=== PATIENT | female | born 1955 | race Caucasian/White ===

== ENCOUNTER 2021-08-13 00:06 | Inpatient (IN) ==
[2021-08-13] MEDS ORDERED: Melatonin 3 MG TABLET PO PRN (02:55)
[2021-08-13] MEDS ORDERED: Naloxone 0.4 MG/ML INJ IVP PRN (02:55)
[2021-08-13] MEDS ORDERED: *HR* Heparin 5,000 UNIT/ML VIAL IVP PRN ×2 (03:04)
[2021-08-13] MEDS ORDERED: *HR* OxyCODONE Immed Rel 5 MG TABLET PO ONE (03:14)
[2021-08-13] MEDS ORDERED: Perflutren Lipid Microsphere 1.3 ML in 0.9 % Sodium Chloride 8.7 ML IVP PRN (03:32)
[2021-08-13] MEDS: Heparin 25,000UNIT/250ML 1/2NS 25,000 UNIT/250 ML IV.SOLN IVC SCH ×2 (03:38→21:28)
[2021-08-13] MEDS ORDERED: *HR* Dextrose 50 % in Water (Syg) 50 ML SYRINGE IVP PRN (04:18)
[2021-08-13] MEDS ORDERED: Dextrose Gel 15 GM/37.5 ML TUBE PO PRN ×2 (04:18)
[2021-08-13] MEDS ORDERED: D5% in Water 1,000 ML IVC PRN (04:18)
[2021-08-13 05:31] LABS: Basophils # 0.1 K/mcL (0.0-0.2); Hematocrit 45.6 % (35.3-44.9); Hemoglobin 14.4 g/dL (11.5-15.4); Immature Granulocytes % 0.8 % (0-4); Lymphocytes # 1.3 K/mcL (0.6-4.6); Lymphocytes % 18.4 %; Mean Corpuscular HGB Conc 31.6 g/dL (31.6-35.5); Mean Corpuscular Hemoglobin 29.1 pg (28.0-33.3); Mean Corpuscular Volume 92.3 fL (83.0-100.0); Mean Platelet Volume 10.3 fL (9.4-12.4); Monocytes # 0.3 K/mcL (0.0-1.3); Monocytes % 4.5 %; Neutrophils # 5.4 K/mcL (1.6-8.9); Platelet Count 202 K/mcL (140-400); Red Blood Count 4.94 M/mcL (3.82-4.97); Red Cell Distribution Width 14.3 % (11.5-14.5); Segmented Neutrophils % 75.3 %; White Blood Count 7.2 K/mcL (4.3-11.1)
[2021-08-13 05:42] LABS: Heparin anti-factor XA UFH 0.92 IU/mL (0.30-0.70); INR 1.2; Prothrombin Time 13.4 Seconds (9.4-12.1)
[2021-08-13 05:44] LABS: Albumin 3.2 g/dL (3.5-5.7); Bilirubin,Total 0.4 mg/dL (0.3-1.0); Calcium 8.2 mg/dL (8.6-10.3); Globulin 3.3 g/dL (2.4-3.5); Magnesium 2.2 mg/dL (1.6-2.6); Phosphorous 3.8 mg/dL (2.7-4.5); Potassium 5.1 mEq/L (3.5-5.1); Total Protein 6.5 g/dL (6.4-8.9)
[2021-08-13 06:01] LABS: Activated Partial Thrombo Time 158.3 Seconds (26.0-36.0)
[2021-08-13] MEDS: Insulin DETEMIR 100 UNIT/ML X5UNITS SUBQ SCH ×3 (08:40→21:45)
[2021-08-13] MEDS: Aspirin 81 MG TAB.CHEW PO SCH (08:40)
[2021-08-13] MEDS ORDERED: Dexamethasone Sodium Phos/PF 10 MG/ML VIAL IVP SCH (09:00)
[2021-08-13] MEDS: Insulin LISPRO 300 UNITS/3 ML VIAL SUBQ SCH ×3 (09:47→17:09)
[2021-08-13] MEDS ORDERED: Azithromycin 500 MG in 0.9 % Sodium Chloride 250 ML IVPB SCH (12:00)
[2021-08-13 12:59] LABS: Heparin anti-factor XA UFH 0.63 IU/mL (0.30-0.70)
[2021-08-13] MEDS ORDERED: Remdesivir 200 MG in 0.9 % Sodium Chloride 100 ML IVPB ONE (14:00)
[2021-08-13] MEDS: rOPINIRole 1 MG TABLET PO SCH ×2 (17:07→23:55)
[2021-08-13] MEDS: Acetaminophen 325 MG TABLET PO PRN (17:07)
[2021-08-13] MEDS: cefTRIAXone 1,000 MG in 0.9 % Sodium Chloride Mini Bag 100 ML IVPB SCH (17:45)
[2021-08-13] MEDS: Doxycycline 100 MG in 0.9 % Sodium Chloride Mini Bag 100 ML IVPB SCH (17:46)
[2021-08-13] MEDS: Dexmedetomidine HCl 400 MCG/100 ML MLS IVC SCH (17:59)
[2021-08-13] MEDS ORDERED: Insulin LISPRO 300 UNITS/3 ML VIAL SUBQ SCH ×2 (21:00)
[2021-08-13 21:18] LABS: BUN/Creatinine Ratio 36 (6-26); Blood Urea Nitrogen 35 mg/dL (8-23); Calcium 8.1 mg/dL (8.6-10.3); Carbon Dioxide 26 mEq/L (23-29); Chloride 102 mEq/L (98-107); Glucose 286 mg/dL (70-105); Magnesium 2.1 mg/dL (1.6-2.6); Osmolality,Calculated 298 (280-300); Potassium 4.6 mEq/L (3.5-5.1); Sodium 135 mEq/L (136-145); eGFR For African Americans > 60 (> 60); eGFR For Non-African Americans 58 (> 60)
[2021-08-14] MEDS: Acetaminophen 325 MG TABLET PO PRN (04:01)
[2021-08-14 04:49] LABS: Hematocrit 43.9 % (35.3-44.9); Hemoglobin 14.3 g/dL (11.5-15.4); Mean Corpuscular HGB Conc 32.6 g/dL (31.6-35.5); Mean Corpuscular Hemoglobin 29.9 pg (28.0-33.3); Mean Corpuscular Volume 91.6 fL (83.0-100.0); Mean Platelet Volume 10.4 fL (9.4-12.4); Platelet Count 245 K/mcL (140-400); Red Blood Count 4.79 M/mcL (3.82-4.97); Red Cell Distribution Width 13.9 % (11.5-14.5)
[2021-08-14] MEDS: Dexmedetomidine HCl 400 MCG/100 ML MLS IVC SCH (04:49)
[2021-08-14] MEDS: cefTRIAXone 1,000 MG in 0.9 % Sodium Chloride Mini Bag 100 ML IVPB SCH ×2 (04:50→20:19)
[2021-08-14 04:51] LABS: White Blood Count 14.5 K/mcL (4.3-11.1)
[2021-08-14 05:10] LABS: Alanine Aminotransferase 25 Units/L (7-52); Albumin 3.1 g/dL (3.5-5.7); Alkaline Phosphatase 63 Units/L (34-104); Aspartate Amino Transferase 60 Units/L (13-39); BUN/Creatinine Ratio 41 (6-26); Bilirubin,Direct 0.1 mg/dL (0.0-0.2); Bilirubin,Indirect 0.3 mg/dL (0.0-1.0); Bilirubin,Total 0.4 mg/dL (0.3-1.0); Blood Urea Nitrogen 36 mg/dL (8-23); Carbon Dioxide 26 mEq/L (23-29); Chloride 101 mEq/L (98-107); Globulin 3.2 g/dL (2.4-3.5); Glucose 279 mg/dL (70-105); Osmolality,Calculated 296 (280-300); Potassium 4.2 mEq/L (3.5-5.1); Sodium 134 mEq/L (136-145); Total Protein 6.3 g/dL (6.4-8.9); eGFR For African Americans > 60 (> 60); eGFR For Non-African Americans > 60 (> 60)
[2021-08-14] MEDS: rOPINIRole 1 MG TABLET PO SCH (05:23)
[2021-08-14] MEDS: Doxycycline 100 MG in 0.9 % Sodium Chloride Mini Bag 100 ML IVPB SCH ×2 (05:27→20:16)
[2021-08-14] MEDS: Insulin LISPRO 300 UNITS/3 ML VIAL SUBQ SCH ×5 (08:24→23:01)
[2021-08-14] MEDS: Dexamethasone Sodium Phos/PF 10 MG/ML VIAL IVP SCH (08:24)
[2021-08-14] MEDS: Insulin DETEMIR 100 UNIT/ML X5UNITS SUBQ SCH ×2 (08:25→20:21)
[2021-08-14] MEDS: Aspirin 81 MG TAB.CHEW PO SCH (09:13)
[2021-08-14] MEDS ORDERED: Norepinephrine 4 MG/254 ML IV.SOLN IVC ONE (09:28)
[2021-08-14] MEDS ORDERED: Artificial Tears SOLN 15 ML BOTTLE BOTH EYES PRN (09:30)
[2021-08-14] MEDS ORDERED: FentaNYL (PF) 1,000 MCG/100 ML IV.SOLN ONE (09:32)
[2021-08-14] MEDS: Cisatracurium 200 MG in 0.9 % Sodium Chloride 180 ML IVC SCH ×2 (09:35→19:24)
[2021-08-14] MEDS ORDERED: Albumin Human 5% 12.5 GM/250 ML IV.SOLN ONE (09:36)
[2021-08-14] MEDS: FentaNYL (PF) 1,000 MCG/100 ML IV.SOLN IVC SCH (10:00)
[2021-08-14] MEDS: Budesonide/Formoterol 160/4.5 1 PUFF INH IH SCH ×2 (11:22→19:36)
[2021-08-14] MEDS: Norepinephrine 4 MG/254 ML IV.SOLN IVC SCH ×2 (11:30→20:49)
[2021-08-14] MEDS ORDERED: *HR* Etomidate 20 MG/10 ML AMPUL IVP ONE (11:30)
[2021-08-14] MEDS ORDERED: *HR* Midazolam HCl 5 MG/5 ML VIAL IVP ONE (11:30)
[2021-08-14] MEDS ORDERED: *HR* Midazolam HCl 2 MG/2 ML VIAL ONE (11:30)
[2021-08-14] MEDS ORDERED: *HR* Succinylcholine 200 MG/10 ML VIAL IVP ONE (11:30)
[2021-08-14 11:41] LABS: ABG Base Excess 0 mEq/L (-2 to 3); ABG HCO3 26 mEq/L (21-27); ABG Oxygen Saturation 78 % (95-98); ABG PCO2 50 mmHg (35-45); ABG PH 7.33 pH Units (7.32-7.45); ABG PO2 46 mmHg (85-104); ABG TCO2 28 mEq/L (20-26); Blood Gas Modality ASSIST CONTROL; Blood Gas VT 450 cc
[2021-08-14] MEDS: Heparin 25,000UNIT/250ML 1/2NS 25,000 UNIT/250 ML IV.SOLN IVC SCH ×2 (12:23→17:02)
[2021-08-14 13:12] LABS: ABG Base Excess 1 mEq/L (-2 to 3); ABG HCO3 27 mEq/L (21-27); ABG Oxygen Saturation 94 % (95-98); ABG PCO2 49 mmHg (35-45); ABG PH 7.35 pH Units (7.32-7.45); ABG PO2 76 mmHg (85-104); ABG TCO2 28 mEq/L (20-26); Blood Gas Modality ASSIST CONTROL; Blood Gas VT 450 cc
[2021-08-14] MEDS: Artificial Tears SOLN 15 ML BOTTLE BOTH EYES SCH ×4 (14:21→23:00)
[2021-08-14] MEDS: Remdesivir 100 MG in 0.9 % Sodium Chloride 100 ML IVPB SCH (15:00)
[2021-08-14] MEDS: Chlorhexidine Rinse 15 ML MOUTHWASH MM SCH (20:20)
[2021-08-15 00:36] LABS: ABG Base Excess 2 mEq/L (-2 to 3); ABG HCO3 29 mEq/L (21-27); ABG Oxygen Saturation 99 % (95-98); ABG PCO2 52 mmHg (35-45); ABG PH 7.35 pH Units (7.32-7.45); ABG PO2 147 mmHg (85-104); ABG TCO2 30 mEq/L (20-26); Blood Gas VT 380 cc
[2021-08-15] MEDS: FentaNYL (PF) 1,000 MCG/100 ML IV.SOLN IVC SCH ×3 (02:13→21:09)
[2021-08-15] MEDS: Dexmedetomidine HCl 400 MCG/100 ML MLS IVC SCH ×2 (02:14→19:03)
[2021-08-15] MEDS: Norepinephrine 4 MG/254 ML IV.SOLN IVC SCH ×4 (02:14→22:10)
[2021-08-15 04:22] LABS: ABG Base Excess 1 mEq/L (-2 to 3); ABG HCO3 29 mEq/L (21-27); ABG Oxygen Saturation 99 % (95-98); ABG PCO2 60 mmHg (35-45); ABG PO2 162 mmHg (85-104); ABG TCO2 31 mEq/L (20-26); Blood Gas VT 380 cc
[2021-08-15 04:23] LABS: Hematocrit 46.2 % (35.3-44.9); Hemoglobin 14.4 g/dL (11.5-15.4); Mean Corpuscular HGB Conc 31.2 g/dL (31.6-35.5); Mean Corpuscular Hemoglobin 28.9 pg (28.0-33.3); Mean Corpuscular Volume 92.6 fL (83.0-100.0); Mean Platelet Volume 10.9 fL (9.4-12.4); Platelet Count 233 K/mcL (140-400); Red Blood Count 4.99 M/mcL (3.82-4.97); Red Cell Distribution Width 14.2 % (11.5-14.5)
[2021-08-15 04:36] LABS: Alanine Aminotransferase 27 Units/L (7-52); Albumin 3.1 g/dL (3.5-5.7); Albumin/Globulin Ratio 0.9 (1.1-2.2); Alkaline Phosphatase 66 Units/L (34-104); Aspartate Amino Transferase 47 Units/L (13-39); BUN/Creatinine Ratio 48 (6-26); Bilirubin,Direct 0.1 mg/dL (0.0-0.2); Bilirubin,Indirect 0.3 mg/dL (0.0-1.0); Bilirubin,Total 0.4 mg/dL (0.3-1.0); Blood Urea Nitrogen 38 mg/dL (8-23); C-Reactive Protein 104 mg/L (Less than 10); Calcium 8.5 mg/dL (8.6-10.3); Carbon Dioxide 28 mEq/L (23-29); Chloride 107 mEq/L (98-107); Globulin 3.3 g/dL (2.4-3.5); Glucose 117 mg/dL (70-105); Osmolality,Calculated 302 (280-300); Potassium 4.2 mEq/L (3.5-5.1); Sodium 141 mEq/L (136-145); Total Protein 6.4 g/dL (6.4-8.9); eGFR For African Americans > 60 (> 60); eGFR For Non-African Americans > 60 (> 60)
[2021-08-15] MEDS: Insulin LISPRO 300 UNITS/3 ML VIAL SUBQ SCH ×6 (04:51→23:02)
[2021-08-15] MEDS: Artificial Tears SOLN 15 ML BOTTLE BOTH EYES SCH ×6 (04:51→22:10)
[2021-08-15 05:06] LABS: Heparin anti-factor XA UFH 0.52 IU/mL (0.30-0.70)
[2021-08-15] MEDS: Cisatracurium 200 MG in 0.9 % Sodium Chloride 180 ML IVC SCH ×3 (05:34→23:02)
[2021-08-15] MEDS: cefTRIAXone 1,000 MG in 0.9 % Sodium Chloride Mini Bag 100 ML IVPB SCH ×2 (06:15→17:15)
[2021-08-15] MEDS: Doxycycline 100 MG in 0.9 % Sodium Chloride Mini Bag 100 ML IVPB SCH ×2 (06:15→17:15)
[2021-08-15] MEDS: Budesonide/Formoterol 160/4.5 1 PUFF INH IH SCH ×2 (07:27→19:19)
[2021-08-15] MEDS: Pantoprazole 40 MG VIAL IVP SCH (08:25)
[2021-08-15] MEDS: Aspirin 81 MG TAB.CHEW PO SCH (08:26)
[2021-08-15] MEDS: Chlorhexidine Rinse 15 ML MOUTHWASH MM SCH ×2 (08:26→19:28)
[2021-08-15] MEDS: Dexamethasone Sodium Phos/PF 10 MG/ML VIAL IVP SCH (08:26)
[2021-08-15] MEDS: Insulin DETEMIR 100 UNIT/ML X5UNITS SUBQ SCH ×2 (08:42→20:00)
[2021-08-15] MEDS ORDERED: 0.9 % Sodium Chloride 1,000 ML ONE (10:54)
[2021-08-15] MEDS: Heparin 25,000UNIT/250ML 1/2NS 25,000 UNIT/250 ML IV.SOLN IVC SCH (11:15)
[2021-08-15 11:46] LABS: ABG Base Excess 0 mEq/L (-2 to 3); ABG HCO3 28 mEq/L (21-27); ABG Oxygen Saturation 89 % (95-98); ABG PCO2 57 mmHg (35-45); ABG PH 7.29 pH Units (7.32-7.45); ABG PO2 65 mmHg (85-104); ABG TCO2 29 mEq/L (20-26); Blood Gas Modality ASSIST CONTROL; Blood Gas VT 380 cc
[2021-08-15] MEDS: Remdesivir 100 MG in 0.9 % Sodium Chloride 100 ML IVPB SCH (14:39)
[2021-08-15 14:43] LABS: Amorphous Sediment,Urine Few per hpf (None-Few); Bacteria,Urine Few per hpf (None-Few); Bilirubin,Urine Negative (Negative); Blood,Urine Negative (Negative); Clarity,Urine Clear (Clear); Color,Urine Yellow (Yellow); Glucose,Urine (UA) Normal (Normal); Granular Casts,Urine Many per lpf (None Seen); Hyaline Casts,Urine Moderate per lpf (None Seen); Ketones,Urine Trace mg/dL (Negative); Leukocyte Esterase,Urine Negative (Negative); Mucus,Urine Few per lpf (None-Few); Nitrite,Urine Negative (Negative); Protein,Urine 70 mg/dL (Neg-Trace); RBC,Urine 0-3 per hpf (0-3); Specific Gravity,Urine > 1.030 (1.010-1.025); Squamous Epithelial Cell,Urine Few per hpf (None-Few); Transitional Epi Cells,Urine Few per hpf (None-Few); Urobilinogen,Urine Normal (Normal)
[2021-08-16] MEDS: Heparin 25,000UNIT/250ML 1/2NS 25,000 UNIT/250 ML IV.SOLN IVC SCH ×2 (01:28→18:53)
[2021-08-16] MEDS: Artificial Tears SOLN 15 ML BOTTLE BOTH EYES SCH ×7 (02:08→23:05)
[2021-08-16] MEDS: Insulin LISPRO 300 UNITS/3 ML VIAL SUBQ SCH ×6 (03:06→23:05)
[2021-08-16 03:19] LABS: Hematocrit 45.6 % (35.3-44.9); Hemoglobin 14.3 g/dL (11.5-15.4); Mean Corpuscular HGB Conc 31.4 g/dL (31.6-35.5); Mean Corpuscular Hemoglobin 29.2 pg (28.0-33.3); Mean Corpuscular Volume 93.1 fL (83.0-100.0); Mean Platelet Volume 10.6 fL (9.4-12.4); Platelet Count 264 K/mcL (140-400); Red Cell Distribution Width 14.4 % (11.5-14.5); White Blood Count 14.7 K/mcL (4.3-11.1)
[2021-08-16 03:37] LABS: Alanine Aminotransferase 31 Units/L (7-52); Albumin/Globulin Ratio 0.9 (1.1-2.2); Alkaline Phosphatase 65 Units/L (34-104); Aspartate Amino Transferase 51 Units/L (13-39); BUN/Creatinine Ratio 46 (6-26); Bilirubin,Direct 0.1 mg/dL (0.0-0.2); Bilirubin,Indirect 0.3 mg/dL (0.0-1.0); Bilirubin,Total 0.4 mg/dL (0.3-1.0); Blood Urea Nitrogen 43 mg/dL (8-23); Calcium 8.8 mg/dL (8.6-10.3); Carbon Dioxide 27 mEq/L (23-29); Chloride 107 mEq/L (98-107); Globulin 3.2 g/dL (2.4-3.5); Glucose 147 mg/dL (70-105); Osmolality,Calculated 306 (280-300); Potassium 4.8 mEq/L (3.5-5.1); Sodium 141 mEq/L (136-145); Total Protein 6.2 g/dL (6.4-8.9); eGFR For African Americans > 60 (> 60); eGFR For Non-African Americans 60 (> 60)
[2021-08-16] MEDS: FentaNYL (PF) 1,000 MCG/100 ML IV.SOLN IVC SCH ×3 (04:17→19:23)
[2021-08-16 04:57] LABS: ABG Base Excess 0 mEq/L (-2 to 3); ABG HCO3 28 mEq/L (21-27); ABG Oxygen Saturation 98 % (95-98); ABG PCO2 59 mmHg (35-45); ABG PH 7.29 pH Units (7.32-7.45); ABG PO2 120 mmHg (85-104); ABG TCO2 30 mEq/L (20-26); Blood Gas VT 380 cc
[2021-08-16] MEDS: cefTRIAXone 1,000 MG in 0.9 % Sodium Chloride Mini Bag 100 ML IVPB SCH ×2 (05:02→17:41)
[2021-08-16] MEDS: Doxycycline 100 MG in 0.9 % Sodium Chloride Mini Bag 100 ML IVPB SCH ×2 (05:02→17:42)
[2021-08-16] MEDS: Budesonide/Formoterol 160/4.5 1 PUFF INH IH SCH ×2 (07:49→19:27)
[2021-08-16] MEDS: Pantoprazole 40 MG VIAL IVP SCH (08:27)
[2021-08-16] MEDS: Aspirin 81 MG TAB.CHEW PO SCH (08:28)
[2021-08-16] MEDS: Insulin DETEMIR 100 UNIT/ML X5UNITS SUBQ SCH ×2 (08:28→20:35)
[2021-08-16] MEDS: Dexamethasone Sodium Phos/PF 10 MG/ML VIAL IVP SCH (08:28)
[2021-08-16] MEDS: Chlorhexidine Rinse 15 ML MOUTHWASH MM SCH ×2 (08:28→20:35)
[2021-08-16] MEDS: Norepinephrine 4 MG/254 ML IV.SOLN IVC SCH ×3 (08:29→22:41)
[2021-08-16] MEDS: Dexmedetomidine HCl 400 MCG/100 ML MLS IVC SCH ×2 (08:29→22:41)
[2021-08-16] MEDS: Cisatracurium 200 MG in 0.9 % Sodium Chloride 180 ML IVC SCH ×2 (09:26→18:54)
[2021-08-16] MEDS: Furosemide 20 MG/2 ML VIAL IVP SCH (09:29)
[2021-08-16] MEDS: Remdesivir 100 MG in 0.9 % Sodium Chloride 100 ML IVPB SCH (14:11)
[2021-08-17] MEDS: FentaNYL (PF) 1,000 MCG/100 ML IV.SOLN IVC SCH ×5 (00:04→23:54)
[2021-08-17] MEDS: Artificial Tears SOLN 15 ML BOTTLE BOTH EYES SCH ×7 (03:10→23:07)
[2021-08-17] MEDS: Insulin LISPRO 300 UNITS/3 ML VIAL SUBQ SCH ×7 (03:10→23:07)
[2021-08-17] MEDS: Cisatracurium 200 MG in 0.9 % Sodium Chloride 180 ML IVC SCH ×3 (03:11→18:56)
[2021-08-17 04:28] LABS: ABG Base Excess 2 mEq/L (-2 to 3); ABG HCO3 29 mEq/L (21-27); ABG Oxygen Saturation 93 % (95-98); ABG PCO2 50 mmHg (35-45); ABG PH 7.37 pH Units (7.32-7.45); ABG PO2 71 mmHg (85-104); ABG TCO2 30 mEq/L (20-26); Blood Gas VT 380 cc
[2021-08-17 04:32] LABS: Hematocrit 44.7 % (35.3-44.9); Hemoglobin 14.2 g/dL (11.5-15.4); Mean Corpuscular HGB Conc 31.8 g/dL (31.6-35.5); Mean Corpuscular Hemoglobin 29.5 pg (28.0-33.3); Mean Corpuscular Volume 92.7 fL (83.0-100.0); Mean Platelet Volume 10.9 fL (9.4-12.4); Platelet Count 276 K/mcL (140-400); Red Blood Count 4.82 M/mcL (3.82-4.97); Red Cell Distribution Width 14.4 % (11.5-14.5); White Blood Count 13.1 K/mcL (4.3-11.1)
[2021-08-17] MEDS: Doxycycline 100 MG in 0.9 % Sodium Chloride Mini Bag 100 ML IVPB SCH ×2 (05:05→17:07)
[2021-08-17] MEDS: cefTRIAXone 1,000 MG in 0.9 % Sodium Chloride Mini Bag 100 ML IVPB SCH ×2 (05:05→17:08)
[2021-08-17 05:14] LABS: Alanine Aminotransferase 30 Units/L (7-52); Albumin 2.9 g/dL (3.5-5.7); Albumin/Globulin Ratio 0.9 (1.1-2.2); Alkaline Phosphatase 58 Units/L (34-104); Aspartate Amino Transferase 47 Units/L (13-39); BUN/Creatinine Ratio 52 (6-26); Bilirubin,Direct 0.1 mg/dL (0.0-0.2); Bilirubin,Indirect 0.3 mg/dL (0.0-1.0); Bilirubin,Total 0.4 mg/dL (0.3-1.0); Blood Urea Nitrogen 45 mg/dL (8-23); C-Reactive Protein 38 mg/L (Less than 10); Calcium 8.6 mg/dL (8.6-10.3); Carbon Dioxide 26 mEq/L (23-29); Chloride 107 mEq/L (98-107); Globulin 3.1 g/dL (2.4-3.5); Glucose 164 mg/dL (70-105); Osmolality,Calculated 307 (280-300); Potassium 4.6 mEq/L (3.5-5.1); Sodium 141 mEq/L (136-145); eGFR For African Americans > 60 (> 60); eGFR For Non-African Americans > 60 (> 60)
[2021-08-17 05:45] LABS: Lymphocytes # 0.8 K/mcL (0.6-4.6); Monocytes # 1.1 K/mcL (0.0-1.3); Neutrophils # 11.1 K/mcL (1.6-8.9)
[2021-08-17 05:46] LABS: Platelet Estimate Normal (Normal)
[2021-08-17] MEDS: Budesonide/Formoterol 160/4.5 1 PUFF INH IH SCH ×2 (07:26→19:25)
[2021-08-17] MEDS: Chlorhexidine Rinse 15 ML MOUTHWASH MM SCH ×2 (08:28→20:18)
[2021-08-17] MEDS: Pantoprazole 40 MG VIAL IVP SCH (08:28)
[2021-08-17] MEDS: Aspirin 81 MG TAB.CHEW PO SCH (08:28)
[2021-08-17] MEDS: Furosemide 20 MG/2 ML VIAL IVP SCH ×3 (08:28→20:20)
[2021-08-17] MEDS: Insulin DETEMIR 100 UNIT/ML X5UNITS SUBQ SCH ×2 (08:28→20:20)
[2021-08-17] MEDS: Dexamethasone Sodium Phos/PF 10 MG/ML VIAL IVP SCH (08:28)
[2021-08-17] MEDS: Norepinephrine 4 MG/254 ML IV.SOLN IVC SCH ×2 (08:29→17:09)
[2021-08-17] MEDS: Dexmedetomidine HCl 400 MCG/100 ML MLS IVC SCH (09:26)
[2021-08-17] MEDS ORDERED: Albumin 25% 25gram/100mL 25 GM/100 ML IV.SOLN IVPB ONE (11:48)
[2021-08-17] MEDS: Heparin 25,000UNIT/250ML 1/2NS 25,000 UNIT/250 ML IV.SOLN IVC SCH ×2 (12:07→23:08)
[2021-08-17] MEDS: Remdesivir 100 MG in 0.9 % Sodium Chloride 100 ML IVPB SCH (13:51)
[2021-08-18] MEDS: Cisatracurium 200 MG in 0.9 % Sodium Chloride 180 ML IVC SCH (02:54)
[2021-08-18] MEDS: Artificial Tears SOLN 15 ML BOTTLE BOTH EYES SCH ×6 (04:27→23:11)
[2021-08-18] MEDS: Insulin LISPRO 300 UNITS/3 ML VIAL SUBQ SCH ×6 (04:28→23:12)
[2021-08-18] MEDS: Norepinephrine 4 MG/254 ML IV.SOLN IVC SCH ×3 (04:29→21:24)
[2021-08-18 04:38] LABS: Hematocrit 44.9 % (35.3-44.9); Hemoglobin 14.2 g/dL (11.5-15.4); Mean Corpuscular HGB Conc 31.6 g/dL (31.6-35.5); Mean Corpuscular Hemoglobin 29.8 pg (28.0-33.3); Mean Corpuscular Volume 94.3 fL (83.0-100.0); Mean Platelet Volume 10.2 fL (9.4-12.4); Platelet Count 359 K/mcL (140-400); Red Blood Count 4.76 M/mcL (3.82-4.97); Red Cell Distribution Width 14.9 % (11.5-14.5); White Blood Count 17.6 K/mcL (4.3-11.1)
[2021-08-18 04:55] LABS: ABG Base Excess 3 mEq/L (-2 to 3); ABG HCO3 31 mEq/L (21-27); ABG Oxygen Saturation 89 % (95-98); ABG PCO2 65 mmHg (35-45); ABG PH 7.29 pH Units (7.32-7.45); ABG PO2 64 mmHg (85-104); ABG TCO2 33 mEq/L (20-26); Blood Gas VT 380 cc
[2021-08-18 04:56] LABS: BUN/Creatinine Ratio 56 (6-26); Blood Urea Nitrogen 52 mg/dL (8-23); Calcium 8.9 mg/dL (8.6-10.3); Carbon Dioxide 29 mEq/L (23-29); Chloride 108 mEq/L (98-107); Glucose 175 mg/dL (70-105); Osmolality,Calculated 316 (280-300); Potassium 5.1 mEq/L (3.5-5.1); Sodium 144 mEq/L (136-145); eGFR For African Americans > 60 (> 60); eGFR For Non-African Americans > 60 (> 60)
[2021-08-18 05:23] LABS: Albumin 3.3 g/dL (3.5-5.7); Albumin/Globulin Ratio 1.1 (1.1-2.2); Bilirubin,Direct 0.2 mg/dL (0.0-0.2); Bilirubin,Indirect 0.3 mg/dL (0.0-1.0); Bilirubin,Total 0.5 mg/dL (0.3-1.0); Total Protein 6.3 g/dL (6.4-8.9)
[2021-08-18] MEDS: FentaNYL (PF) 1,000 MCG/100 ML IV.SOLN IVC SCH (05:33)
[2021-08-18] MEDS: cefTRIAXone 1,000 MG in 0.9 % Sodium Chloride Mini Bag 100 ML IVPB SCH ×2 (05:34→17:32)
[2021-08-18] MEDS: Doxycycline 100 MG in 0.9 % Sodium Chloride Mini Bag 100 ML IVPB SCH ×2 (05:34→17:32)
[2021-08-18] MEDS: Budesonide/Formoterol 160/4.5 1 PUFF INH IH SCH ×2 (07:38→20:13)
[2021-08-18] MEDS: Furosemide 20 MG/2 ML VIAL IVP SCH ×2 (08:38→21:15)
[2021-08-18] MEDS: Chlorhexidine Rinse 15 ML MOUTHWASH MM SCH ×2 (08:40→21:15)
[2021-08-18] MEDS: Pantoprazole 40 MG VIAL IVP SCH (08:40)
[2021-08-18] MEDS: Aspirin 81 MG TAB.CHEW PO SCH (08:40)
[2021-08-18] MEDS: Insulin DETEMIR 100 UNIT/ML X5UNITS SUBQ SCH ×2 (08:41→21:15)
[2021-08-18] MEDS: Dexmedetomidine HCl 400 MCG/100 ML MLS IVC SCH ×2 (09:18→11:00)
[2021-08-18] MEDS: *HR* Enoxaparin 60 MG/0.6 ML SYRINGE SQ SCH (21:15)
[2021-08-19] MEDS: Insulin LISPRO 300 UNITS/3 ML VIAL SUBQ SCH ×4 (04:37→22:46)
[2021-08-19] MEDS: Artificial Tears SOLN 15 ML BOTTLE BOTH EYES SCH ×2 (04:37→09:10)
[2021-08-19 04:44] LABS: Hematocrit 41.2 % (35.3-44.9); Hemoglobin 13.2 g/dL (11.5-15.4); Mean Corpuscular Hemoglobin 29.9 pg (28.0-33.3); Mean Corpuscular Volume 93.4 fL (83.0-100.0); Mean Platelet Volume 10.8 fL (9.4-12.4); Platelet Count 258 K/mcL (140-400); Red Blood Count 4.41 M/mcL (3.82-4.97); Red Cell Distribution Width 14.9 % (11.5-14.5); White Blood Count 12.4 K/mcL (4.3-11.1)
[2021-08-19] MEDS: Doxycycline 100 MG in 0.9 % Sodium Chloride Mini Bag 100 ML IVPB SCH (05:05)
[2021-08-19] MEDS: cefTRIAXone 1,000 MG in 0.9 % Sodium Chloride Mini Bag 100 ML IVPB SCH (05:05)
[2021-08-19] MEDS: Norepinephrine 4 MG/254 ML IV.SOLN IVC SCH (05:05)
[2021-08-19 06:13] LABS: BUN/Creatinine Ratio 72 (6-26); Blood Urea Nitrogen 55 mg/dL (8-23); Calcium 9.2 mg/dL (8.6-10.3); Carbon Dioxide 34 mEq/L (23-29); Chloride 108 mEq/L (98-107); Glucose 105 mg/dL (70-105); Osmolality,Calculated 323 (280-300); Potassium 4.5 mEq/L (3.5-5.1); Sodium 149 mEq/L (136-145); eGFR For African Americans > 60 (> 60); eGFR For Non-African Americans > 60 (> 60)
[2021-08-19] MEDS: Budesonide/Formoterol 160/4.5 1 PUFF INH IH SCH ×2 (07:26→20:14)
[2021-08-19] MEDS: Furosemide 20 MG/2 ML VIAL IVP SCH ×2 (08:28→21:11)
[2021-08-19] MEDS: Pantoprazole 40 MG VIAL IVP SCH (08:28)
[2021-08-19] MEDS: *HR* Enoxaparin 60 MG/0.6 ML SYRINGE SQ SCH ×2 (08:31→21:10)
[2021-08-19] MEDS: Chlorhexidine Rinse 15 ML MOUTHWASH MM SCH ×2 (08:31→21:12)
[2021-08-19] MEDS: Aspirin 81 MG TAB.CHEW PO SCH (08:35)
[2021-08-19] MEDS: Insulin DETEMIR 100 UNIT/ML X5UNITS SUBQ SCH ×2 (09:08→21:11)
[2021-08-19] MEDS ORDERED: Insulin LISPRO 300 UNITS/3 ML VIAL SUBQ SCH ×2 (11:30→21:00)
[2021-08-19] MEDS ORDERED: *HR* Dextrose 50 % in Water (Syg) 50 ML SYRINGE IVP PRN (12:45)
[2021-08-19] MEDS ORDERED: Naloxone 0.4 MG/ML INJ IVP PRN (12:45)
[2021-08-19] MEDS ORDERED: D5% in Water 1,000 ML IVC PRN (12:45)
[2021-08-19] MEDS ORDERED: Dextrose Gel 15 GM/37.5 ML TUBE PO PRN ×2 (12:45)
[2021-08-20 05:44] LABS: BUN/Creatinine Ratio 70 (6-26); Blood Urea Nitrogen 56 mg/dL (8-23); C-Reactive Protein 58 mg/L (Less than 10); Calcium 9.5 mg/dL (8.6-10.3); Carbon Dioxide 36 mEq/L (23-29); Chloride 102 mEq/L (98-107); Glucose 160 mg/dL (70-105); Osmolality,Calculated 323 (280-300); Potassium 4.4 mEq/L (3.5-5.1); Sodium 147 mEq/L (136-145); eGFR For African Americans > 60 (> 60); eGFR For Non-African Americans > 60 (> 60)
[2021-08-20] MEDS: Insulin LISPRO 300 UNITS/3 ML VIAL SUBQ SCH ×4 (07:45→21:45)
[2021-08-20] MEDS: Budesonide/Formoterol 160/4.5 1 PUFF INH IH SCH (08:00)
[2021-08-20] MEDS: Insulin DETEMIR 100 UNIT/ML X5UNITS SUBQ SCH ×2 (08:24→21:52)
[2021-08-20] MEDS: *HR* Enoxaparin 60 MG/0.6 ML SYRINGE SQ SCH (08:24)
[2021-08-20] MEDS: Chlorhexidine Rinse 15 ML MOUTHWASH MM SCH (08:24)
[2021-08-20] MEDS: Acetaminophen 325 MG TABLET PO PRN (08:24)
[2021-08-20] MEDS: Aspirin 81 MG TAB.CHEW PO SCH (08:25)
[2021-08-20] MEDS: Furosemide 20 MG/2 ML VIAL IVP SCH ×2 (08:25→21:51)
[2021-08-20] MEDS ORDERED: Dexamethasone Sodium Phos/PF 10 MG/ML VIAL IVP SCH (09:00)
[2021-08-20] MEDS ORDERED: Pantoprazole 40 MG VIAL IVP SCH (09:00)
[2021-08-20] MEDS: Ergocalciferol (VIT D2) 50,000 UNIT (1.25MG) CAP PO SCH (11:39)
[2021-08-20] MEDS ORDERED: *HR* Enoxaparin 60 MG/0.6 ML SYRINGE SQ SCH (21:00)
[2021-08-20] MEDS: *HR* Enoxaparin 40 MG/0.4 ML SYRINGE SQ SCH (21:51)
[2021-08-20] MEDS: rOPINIRole 1 MG TABLET PO SCH (21:52)
[2021-08-21 01:03] LABS: Basophils % 0.2 %; Eosinophils # 0.2 K/mcL (0.0-0.6); Eosinophils % 1.1 %; Hematocrit 43.1 % (35.3-44.9); Hemoglobin 14.1 g/dL (11.5-15.4); Immature Granulocytes % 1.5 % (0-4); Lymphocytes % 14.4 %; Mean Corpuscular HGB Conc 32.7 g/dL (31.6-35.5); Mean Corpuscular Hemoglobin 29.9 pg (28.0-33.3); Mean Corpuscular Volume 91.5 fL (83.0-100.0); Mean Platelet Volume 10.3 fL (9.4-12.4); Monocytes # 0.6 K/mcL (0.0-1.3); Monocytes % 4.3 %; Neutrophils # 10.6 K/mcL (1.6-8.9); Platelet Count 218 K/mcL (140-400); Red Blood Count 4.71 M/mcL (3.82-4.97); Red Cell Distribution Width 14.2 % (11.5-14.5); Segmented Neutrophils % 78.5 %; White Blood Count 13.6 K/mcL (4.3-11.1)
[2021-08-21 01:20] LABS: BUN/Creatinine Ratio 63 (6-26); Blood Urea Nitrogen 38 mg/dL (8-23); Calcium 8.9 mg/dL (8.6-10.3); Carbon Dioxide 35 mEq/L (23-29); Chloride 97 mEq/L (98-107); Glucose 152 mg/dL (70-105); Magnesium 1.8 mg/dL (1.6-2.6); Osmolality,Calculated 302 (280-300); Phosphorous 3.9 mg/dL (2.7-4.5); Potassium 4.1 mEq/L (3.5-5.1); Sodium 140 mEq/L (136-145); eGFR For African Americans > 60 (> 60); eGFR For Non-African Americans > 60 (> 60)
[2021-08-21] MEDS: Insulin LISPRO 300 UNITS/3 ML VIAL SUBQ SCH ×4 (07:41→21:13)
[2021-08-21] MEDS: *HR* Enoxaparin 40 MG/0.4 ML SYRINGE SQ SCH ×2 (09:53→21:11)
[2021-08-21] MEDS: Aspirin 81 MG TAB.CHEW PO SCH (09:54)
[2021-08-21] MEDS: Cyanocobalamin (B-12) 1,000 MCG TABLET PO SCH (09:54)
[2021-08-21] MEDS: Loratadine 10 MG TABLET PO SCH (09:54)
[2021-08-21] MEDS: rOPINIRole 1 MG TABLET PO SCH ×2 (09:55→21:12)
[2021-08-21] MEDS: Valsartan 80 MG TABLET PO SCH (09:55)
[2021-08-21] MEDS: Furosemide 20 MG/2 ML VIAL IVP SCH ×2 (09:56→21:12)
[2021-08-21] MEDS: Fluticasone Propionate Nasal 50 MCG/SPRAY BOTTLE NS SCH (09:58)
[2021-08-21] MEDS: Insulin DETEMIR 100 UNIT/ML X5UNITS SUBQ SCH ×2 (10:19→21:12)
[2021-08-21] MEDS: Nystatin POWDER 30 GM BOTTLE TP SCH (23:04)
[2021-08-22 07:04] LABS: BUN/Creatinine Ratio 55 (6-26); Blood Urea Nitrogen 30 mg/dL (8-23); Calcium 9.4 mg/dL (8.6-10.3); Carbon Dioxide 36 mEq/L (23-29); Chloride 96 mEq/L (98-107); Glucose 82 mg/dL (70-105); Osmolality,Calculated 291 (280-300); Potassium 3.9 mEq/L (3.5-5.1); Sodium 138 mEq/L (136-145); eGFR For African Americans > 60 (> 60); eGFR For Non-African Americans > 60 (> 60)
[2021-08-22 07:14] LABS: Basophils % 0.2 %; Eosinophils # 0.4 K/mcL (0.0-0.6); Hematocrit 45.2 % (35.3-44.9); Hemoglobin 14.7 g/dL (11.5-15.4); Immature Granulocytes % 0.9 % (0-4); Lymphocytes # 3.2 K/mcL (0.6-4.6); Lymphocytes % 17.6 %; Mean Corpuscular HGB Conc 32.5 g/dL (31.6-35.5); Mean Corpuscular Hemoglobin 29.3 pg (28.0-33.3); Mean Platelet Volume 10.7 fL (9.4-12.4); Monocytes # 0.9 K/mcL (0.0-1.3); Monocytes % 5.1 %; Neutrophils # 13.6 K/mcL (1.6-8.9); Platelet Count 217 K/mcL (140-400); Red Blood Count 5.02 M/mcL (3.82-4.97); Segmented Neutrophils % 74.2 %; White Blood Count 18.3 K/mcL (4.3-11.1)
[2021-08-22] MEDS: Insulin LISPRO 300 UNITS/3 ML VIAL SUBQ SCH ×4 (07:32→19:46)
[2021-08-22] MEDS: Valsartan 80 MG TABLET PO SCH (10:02)
[2021-08-22] MEDS: Fluticasone Propionate Nasal 50 MCG/SPRAY BOTTLE NS SCH (10:02)
[2021-08-22] MEDS: Loratadine 10 MG TABLET PO SCH (10:02)
[2021-08-22] MEDS: Aspirin 81 MG TAB.CHEW PO SCH (10:02)
[2021-08-22] MEDS: Cyanocobalamin (B-12) 1,000 MCG TABLET PO SCH (10:03)
[2021-08-22] MEDS: Nystatin POWDER 30 GM BOTTLE TP SCH ×2 (10:03→20:59)
[2021-08-22] MEDS: rOPINIRole 1 MG TABLET PO SCH ×2 (10:03→20:01)
[2021-08-22] MEDS: *HR* Enoxaparin 40 MG/0.4 ML SYRINGE SQ SCH ×2 (10:03→20:00)
[2021-08-22] MEDS: Furosemide 20 MG/2 ML VIAL IVP SCH (10:03)
[2021-08-22] MEDS: Insulin DETEMIR 100 UNIT/ML X5UNITS SUBQ SCH ×2 (10:04→20:03)
[2021-08-23] MEDS ORDERED: Saline Nasal Spray 44 ML BOTTLE NS PRN (05:46)
[2021-08-23] MEDS: Fluticasone Propionate Nasal 50 MCG/SPRAY BOTTLE NS SCH (09:45)
[2021-08-23] MEDS: Valsartan 80 MG TABLET PO SCH (09:46)
[2021-08-23] MEDS: Loratadine 10 MG TABLET PO SCH (09:46)
[2021-08-23] MEDS: rOPINIRole 1 MG TABLET PO SCH ×2 (09:46→19:15)
[2021-08-23] MEDS: *HR* Enoxaparin 40 MG/0.4 ML SYRINGE SQ SCH ×2 (09:47→20:46)
[2021-08-23] MEDS: Furosemide 40 MG TABLET PO SCH (09:47)
[2021-08-23] MEDS: Insulin LISPRO 300 UNITS/3 ML VIAL SUBQ SCH ×4 (09:47→19:31)
[2021-08-23] MEDS: Aspirin 81 MG TAB.CHEW PO SCH (09:47)
[2021-08-23] MEDS: Cyanocobalamin (B-12) 1,000 MCG TABLET PO SCH (09:47)
[2021-08-23] MEDS: Nystatin POWDER 30 GM BOTTLE TP SCH ×2 (09:48→19:42)
[2021-08-23] MEDS: Insulin DETEMIR 100 UNIT/ML X5UNITS SUBQ SCH (20:46)
[2021-08-24] MEDS ORDERED: Isovue-370 500 ML BOTTLE IVP ONE (08:14)
[2021-08-24] MEDS: *HR* Enoxaparin 40 MG/0.4 ML SYRINGE SQ SCH ×2 (08:42→19:58)
[2021-08-24] MEDS: Insulin LISPRO 300 UNITS/3 ML VIAL SUBQ SCH ×4 (08:42→19:57)
[2021-08-24] MEDS: Loratadine 10 MG TABLET PO SCH (08:43)
[2021-08-24] MEDS: *HR* LORazepam 2 MG/ML VIAL IVP PRN ×2 (08:43→15:24)
[2021-08-24] MEDS: rOPINIRole 1 MG TABLET PO SCH ×2 (08:43→19:53)
[2021-08-24] MEDS: Valsartan 80 MG TABLET PO SCH (08:43)
[2021-08-24] MEDS: Aspirin 81 MG TAB.CHEW PO SCH (08:44)
[2021-08-24] MEDS: Nystatin POWDER 30 GM BOTTLE TP SCH ×2 (08:44→20:02)
[2021-08-24] MEDS: Cyanocobalamin (B-12) 1,000 MCG TABLET PO SCH (08:44)
[2021-08-24] MEDS: Furosemide 40 MG TABLET PO SCH (08:44)
[2021-08-24] MEDS: Fluticasone Propionate Nasal 50 MCG/SPRAY BOTTLE NS SCH (08:44)
[2021-08-24 09:01] LABS: Basophils % 0.2 %; Eosinophils # 0.2 K/mcL (0.0-0.6); Eosinophils % 1.1 %; Hematocrit 43.1 % (35.3-44.9); Hemoglobin 14.2 g/dL (11.5-15.4); Immature Granulocytes % 0.7 % (0-4); Lymphocytes # 3.5 K/mcL (0.6-4.6); Lymphocytes % 16.7 %; Mean Corpuscular HGB Conc 32.9 g/dL (31.6-35.5); Mean Corpuscular Hemoglobin 29.4 pg (28.0-33.3); Mean Corpuscular Volume 89.2 fL (83.0-100.0); Monocytes # 1.1 K/mcL (0.0-1.3); Monocytes % 5.1 %; Neutrophils # 15.8 K/mcL (1.6-8.9); Platelet Count 244 K/mcL (140-400); Red Blood Count 4.83 M/mcL (3.82-4.97); Red Cell Distribution Width 13.9 % (11.5-14.5); Segmented Neutrophils % 76.2 %; White Blood Count 20.8 K/mcL (4.3-11.1)
[2021-08-24 09:09] LABS: Alanine Aminotransferase 28 Units/L (7-52); Albumin 3.2 g/dL (3.5-5.7); Albumin/Globulin Ratio 1.1 (1.1-2.2); Alkaline Phosphatase 73 Units/L (34-104); Aspartate Amino Transferase 29 Units/L (13-39); BUN/Creatinine Ratio 32 (6-26); Bilirubin,Total 0.9 mg/dL (0.3-1.0); Blood Urea Nitrogen 21 mg/dL (8-23); Calcium 9.1 mg/dL (8.6-10.3); Carbon Dioxide 34 mEq/L (23-29); Chloride 93 mEq/L (98-107); Glucose 198 mg/dL (70-105); Osmolality,Calculated 285 (280-300); Potassium 3.6 mEq/L (3.5-5.1); Sodium 133 mEq/L (136-145); Total Protein 6.2 g/dL (6.4-8.9); eGFR For African Americans > 60 (> 60); eGFR For Non-African Americans > 60 (> 60)
[2021-08-24] MEDS: Furosemide 40 MG/4 ML VIAL IVP SCH (12:08)
[2021-08-24] MEDS ORDERED: 0.9 % Sodium Chloride 1,000 ML IV ONE (19:39)
[2021-08-24] MEDS: Insulin DETEMIR 100 UNIT/ML X5UNITS SUBQ SCH (19:58)
[2021-08-25] MEDS: *HR* LORazepam 2 MG/ML VIAL IVP PRN ×3 (00:02→21:41)
[2021-08-25] MEDS: Insulin LISPRO 300 UNITS/3 ML VIAL SUBQ SCH ×4 (08:36→21:42)
[2021-08-25] MEDS: Loratadine 10 MG TABLET PO SCH (09:05)
[2021-08-25] MEDS: Valsartan 80 MG TABLET PO SCH (09:05)
[2021-08-25] MEDS: Aspirin 81 MG TAB.CHEW PO SCH (09:05)
[2021-08-25] MEDS: rOPINIRole 1 MG TABLET PO SCH ×2 (09:06→21:43)
[2021-08-25] MEDS: Cyanocobalamin (B-12) 1,000 MCG TABLET PO SCH (09:06)
[2021-08-25] MEDS: Furosemide 40 MG/4 ML VIAL IVP SCH (10:10)
[2021-08-25] MEDS: *HR* Enoxaparin 40 MG/0.4 ML SYRINGE SQ SCH ×2 (10:10→21:41)
[2021-08-25] MEDS: Nystatin POWDER 30 GM BOTTLE TP SCH ×2 (10:11→21:43)
[2021-08-25] MEDS: Fluticasone Propionate Nasal 50 MCG/SPRAY BOTTLE NS SCH (10:12)
[2021-08-25] MEDS ORDERED: Furosemide 40 MG/4 ML VIAL IVP ONE (16:15)
[2021-08-25] MEDS: Insulin DETEMIR 100 UNIT/ML X5UNITS SUBQ SCH (21:52)
[2021-08-26 03:16] LABS: Basophils % 0.1 %; Hematocrit 42.9 % (35.3-44.9); Hemoglobin 13.9 g/dL (11.5-15.4); Immature Granulocytes % 0.6 % (0-4); Lymphocytes # 1.1 K/mcL (0.6-4.6); Lymphocytes % 8.1 %; Mean Corpuscular HGB Conc 32.4 g/dL (31.6-35.5); Mean Corpuscular Hemoglobin 29.2 pg (28.0-33.3); Mean Corpuscular Volume 90.1 fL (83.0-100.0); Mean Platelet Volume 11.3 fL (9.4-12.4); Monocytes # 0.7 K/mcL (0.0-1.3); Monocytes % 4.9 %; Neutrophils # 11.8 K/mcL (1.6-8.9); Platelet Count 219 K/mcL (140-400); Red Blood Count 4.76 M/mcL (3.82-4.97); Red Cell Distribution Width 13.6 % (11.5-14.5); Segmented Neutrophils % 86.3 %; White Blood Count 13.7 K/mcL (4.3-11.1)
[2021-08-26 03:34] LABS: BUN/Creatinine Ratio 34 (6-26); Blood Urea Nitrogen 22 mg/dL (8-23); Carbon Dioxide 32 mEq/L (23-29); Chloride 94 mEq/L (98-107); Glucose 341 mg/dL (70-105); Magnesium 1.7 mg/dL (1.6-2.6); Osmolality,Calculated 297 (280-300); Sodium 135 mEq/L (136-145); eGFR For African Americans > 60 (> 60); eGFR For Non-African Americans > 60 (> 60)
[2021-08-26] MEDS: *HR* LORazepam 2 MG/ML VIAL IVP PRN ×2 (09:15→15:39)
[2021-08-26] MEDS: Aspirin 81 MG TAB.CHEW PO SCH (09:16)
[2021-08-26] MEDS: rOPINIRole 1 MG TABLET PO SCH ×2 (09:16→20:09)
[2021-08-26] MEDS: Valsartan 80 MG TABLET PO SCH (09:16)
[2021-08-26] MEDS: *HR* Enoxaparin 40 MG/0.4 ML SYRINGE SQ SCH ×2 (09:16→20:09)
[2021-08-26] MEDS: Nystatin POWDER 30 GM BOTTLE TP SCH ×2 (09:17→20:10)
[2021-08-26] MEDS: Cyanocobalamin (B-12) 1,000 MCG TABLET PO SCH (09:17)
[2021-08-26] MEDS: Furosemide 40 MG/4 ML VIAL IVP SCH (09:18)
[2021-08-26] MEDS: Insulin LISPRO 300 UNITS/3 ML VIAL SUBQ SCH ×4 (09:19→20:10)
[2021-08-26] MEDS: Fluticasone Propionate Nasal 50 MCG/SPRAY BOTTLE NS SCH (09:20)
[2021-08-26] MEDS: Loratadine 10 MG TABLET PO SCH (09:20)
[2021-08-26] MEDS ORDERED: Insulin DETEMIR 100 UNIT/ML X5UNITS SUBQ SCH (21:00)
[2021-08-27] MEDS: *HR* LORazepam 2 MG/ML VIAL IVP PRN ×2 (00:05→07:46)
[2021-08-27 02:16] LABS: BUN/Creatinine Ratio 37 (6-26); Blood Urea Nitrogen 26 mg/dL (8-23); Calcium 9.2 mg/dL (8.6-10.3); Carbon Dioxide 31 mEq/L (23-29); Chloride 93 mEq/L (98-107); Glucose 350 mg/dL (70-105); Osmolality,Calculated 295 (280-300); Sodium 133 mEq/L (136-145); eGFR For African Americans > 60 (> 60); eGFR For Non-African Americans > 60 (> 60)
[2021-08-27] MEDS: Valsartan 80 MG TABLET PO SCH (07:24)
[2021-08-27] MEDS: Cyanocobalamin (B-12) 1,000 MCG TABLET PO SCH (07:25)
[2021-08-27] MEDS: Aspirin 81 MG TAB.CHEW PO SCH (07:25)
[2021-08-27] MEDS: Loratadine 10 MG TABLET PO SCH (07:25)
[2021-08-27] MEDS: rOPINIRole 1 MG TABLET PO SCH ×2 (07:25→20:19)
[2021-08-27] MEDS: Benzonatate 100 MG CAPSULE PO PRN ×3 (07:25→22:31)
[2021-08-27] MEDS: *HR* Enoxaparin 40 MG/0.4 ML SYRINGE SQ SCH ×2 (07:25→20:19)
[2021-08-27] MEDS: Fluticasone Propionate Nasal 50 MCG/SPRAY BOTTLE NS SCH (07:27)
[2021-08-27] MEDS: Furosemide 40 MG/4 ML VIAL IVP SCH (07:27)
[2021-08-27] MEDS: Nystatin POWDER 30 GM BOTTLE TP SCH ×2 (07:27→20:20)
[2021-08-27] MEDS: Insulin LISPRO 300 UNITS/3 ML VIAL SUBQ SCH ×4 (07:28→20:19)
[2021-08-27] MEDS: Morphine Sulfate Oral CONC 10 MG/0.5 ML ORAL.SYG SL PRN ×3 (10:22→20:23)
[2021-08-27] MEDS: Ergocalciferol (VIT D2) 50,000 UNIT (1.25MG) CAP PO SCH (10:23)
[2021-08-27] MEDS ORDERED: Haloperidol Lactate 5 MG/ML VIAL IVP PRN (14:02)
[2021-08-27] MEDS: Acetaminophen 325 MG TABLET PO PRN (15:00)
[2021-08-27] MEDS: Insulin DETEMIR 100 UNIT/ML X5UNITS SUBQ SCH (20:19)
[2021-08-28] MEDS: Morphine Sulfate Oral CONC 10 MG/0.5 ML ORAL.SYG SL PRN ×5 (00:49→20:25)
[2021-08-28] MEDS: Insulin LISPRO 300 UNITS/3 ML VIAL SUBQ SCH ×4 (09:23→20:09)
[2021-08-28] MEDS: *HR* Enoxaparin 40 MG/0.4 ML SYRINGE SQ SCH ×2 (09:23→20:10)
[2021-08-28] MEDS: Loratadine 10 MG TABLET PO SCH (09:23)
[2021-08-28] MEDS: rOPINIRole 1 MG TABLET PO SCH ×2 (09:23→20:10)
[2021-08-28] MEDS: Furosemide 40 MG/4 ML VIAL IVP SCH (09:24)
[2021-08-28] MEDS: Cyanocobalamin (B-12) 1,000 MCG TABLET PO SCH (09:24)
[2021-08-28] MEDS: Valsartan 80 MG TABLET PO SCH (09:24)
[2021-08-28] MEDS: Aspirin 81 MG TAB.CHEW PO SCH (09:24)
[2021-08-28] MEDS: Fluticasone Propionate Nasal 50 MCG/SPRAY BOTTLE NS SCH (09:25)
[2021-08-28] MEDS: Nystatin POWDER 30 GM BOTTLE TP SCH ×2 (09:25→20:31)
[2021-08-28] MEDS: Insulin DETEMIR 100 UNIT/ML X5UNITS SUBQ SCH ×2 (09:26→20:09)
[2021-08-28] MEDS: Benzonatate 100 MG CAPSULE PO PRN ×2 (09:26→20:25)
[2021-08-29] MEDS: Morphine Sulfate Oral CONC 10 MG/0.5 ML ORAL.SYG SL PRN ×4 (01:02→21:29)
[2021-08-29 02:17] LABS: Basophils % 0.1 %; Eosinophils # 0.1 K/mcL (0.0-0.6); Eosinophils % 0.6 %; Hematocrit 42.5 % (35.3-44.9); Hemoglobin 14.3 g/dL (11.5-15.4); Immature Granulocytes % 0.6 % (0-4); Lymphocytes % 12.9 %; Mean Corpuscular HGB Conc 33.6 g/dL (31.6-35.5); Mean Corpuscular Hemoglobin 30.2 pg (28.0-33.3); Mean Corpuscular Volume 89.9 fL (83.0-100.0); Mean Platelet Volume 10.6 fL (9.4-12.4); Monocytes # 0.6 K/mcL (0.0-1.3); Monocytes % 3.5 %; Neutrophils # 12.8 K/mcL (1.6-8.9); Platelet Count 213 K/mcL (140-400); Red Blood Count 4.73 M/mcL (3.82-4.97); Red Cell Distribution Width 14.2 % (11.5-14.5); Segmented Neutrophils % 82.3 %; White Blood Count 15.6 K/mcL (4.3-11.1)
[2021-08-29 02:35] LABS: BUN/Creatinine Ratio 45 (6-26); Blood Urea Nitrogen 27 mg/dL (8-23); Calcium 8.9 mg/dL (8.6-10.3); Carbon Dioxide 35 mEq/L (23-29); Chloride 95 mEq/L (98-107); Glucose 159 mg/dL (70-105); Osmolality,Calculated 290 (280-300); Potassium 3.9 mEq/L (3.5-5.1); Sodium 136 mEq/L (136-145); eGFR For African Americans > 60 (> 60); eGFR For Non-African Americans > 60 (> 60)
[2021-08-29] MEDS: Insulin LISPRO 300 UNITS/3 ML VIAL SUBQ SCH ×4 (07:07→21:32)
[2021-08-29] MEDS: Furosemide 40 MG/4 ML VIAL IVP SCH (08:30)
[2021-08-29] MEDS: Aspirin 81 MG TAB.CHEW PO SCH (08:31)
[2021-08-29] MEDS: Valsartan 80 MG TABLET PO SCH (08:31)
[2021-08-29] MEDS: Cyanocobalamin (B-12) 1,000 MCG TABLET PO SCH (08:31)
[2021-08-29] MEDS: rOPINIRole 1 MG TABLET PO SCH ×2 (08:31→21:30)
[2021-08-29] MEDS: *HR* Enoxaparin 40 MG/0.4 ML SYRINGE SQ SCH ×2 (08:32→21:29)
[2021-08-29] MEDS: Insulin DETEMIR 100 UNIT/ML X5UNITS SUBQ SCH ×2 (08:32→21:33)
[2021-08-29] MEDS: Loratadine 10 MG TABLET PO SCH (08:32)
[2021-08-29] MEDS: Fluticasone Propionate Nasal 50 MCG/SPRAY BOTTLE NS SCH (08:32)
[2021-08-29] MEDS: Nystatin POWDER 30 GM BOTTLE TP SCH ×2 (09:33→21:31)
[2021-08-29] MEDS: Benzonatate 100 MG CAPSULE PO PRN (16:49)
[2021-08-29] MEDS: Melatonin 3 MG TABLET PO PRN (21:31)
[2021-08-30] MEDS: Morphine Sulfate Oral CONC 10 MG/0.5 ML ORAL.SYG SL PRN ×3 (02:30→23:32)
[2021-08-30 05:33] LABS: Basophils % 0.2 %; Eosinophils # 0.4 K/mcL (0.0-0.6); Eosinophils % 1.7 %; Hematocrit 44.9 % (35.3-44.9); Hemoglobin 14.5 g/dL (11.5-15.4); Immature Granulocytes % 0.5 % (0-4); Lymphocytes # 3.2 K/mcL (0.6-4.6); Lymphocytes % 15.6 %; Mean Corpuscular HGB Conc 32.3 g/dL (31.6-35.5); Mean Corpuscular Hemoglobin 29.3 pg (28.0-33.3); Mean Corpuscular Volume 90.7 fL (83.0-100.0); Mean Platelet Volume 10.5 fL (9.4-12.4); Monocytes # 0.6 K/mcL (0.0-1.3); Neutrophils # 16.3 K/mcL (1.6-8.9); Platelet Count 243 K/mcL (140-400); Red Blood Count 4.95 M/mcL (3.82-4.97); Red Cell Distribution Width 14.6 % (11.5-14.5); White Blood Count 20.6 K/mcL (4.3-11.1)
[2021-08-30 05:56] LABS: BUN/Creatinine Ratio 33 (6-26); Blood Urea Nitrogen 26 mg/dL (8-23); Calcium 9.5 mg/dL (8.6-10.3); Carbon Dioxide 37 mEq/L (23-29); Chloride 94 mEq/L (98-107); Glucose 111 mg/dL (70-105); Osmolality,Calculated 287 (280-300); Potassium 4.8 mEq/L (3.5-5.1); Sodium 136 mEq/L (136-145); eGFR For African Americans > 60 (> 60); eGFR For Non-African Americans > 60 (> 60)
[2021-08-30] MEDS: Benzonatate 100 MG CAPSULE PO PRN (06:10)
[2021-08-30] MEDS: Aspirin 81 MG TAB.CHEW PO SCH (08:03)
[2021-08-30] MEDS: Loratadine 10 MG TABLET PO SCH (08:03)
[2021-08-30] MEDS: Valsartan 80 MG TABLET PO SCH (08:04)
[2021-08-30] MEDS: Cyanocobalamin (B-12) 1,000 MCG TABLET PO SCH (08:04)
[2021-08-30] MEDS: rOPINIRole 1 MG TABLET PO SCH ×2 (08:06→20:53)
[2021-08-30] MEDS: *HR* Enoxaparin 40 MG/0.4 ML SYRINGE SQ SCH ×2 (08:10→20:54)
[2021-08-30] MEDS: Furosemide 40 MG/4 ML VIAL IVP SCH (08:11)
[2021-08-30] MEDS: Fluticasone Propionate Nasal 50 MCG/SPRAY BOTTLE NS SCH (08:12)
[2021-08-30] MEDS: Insulin LISPRO 300 UNITS/3 ML VIAL SUBQ SCH ×4 (08:23→20:55)
[2021-08-30] MEDS: Nystatin POWDER 30 GM BOTTLE TP SCH ×2 (08:24→20:55)
[2021-08-30] MEDS: Insulin DETEMIR 100 UNIT/ML X5UNITS SUBQ SCH ×2 (08:24→20:54)
[2021-08-30] MEDS: GuaiFENesin/Codeine Oral Soln 5 ML UDC PO PRN ×2 (12:15→18:10)
[2021-08-30] MEDS: Nystatin SUSP 5 ML UD.LIQ PO SCH ×2 (20:53→21:08)
[2021-08-30] MEDS: Melatonin 3 MG TABLET PO PRN (20:53)
[2021-08-31] MEDS: GuaiFENesin/Codeine Oral Soln 5 ML UDC PO PRN (02:27)
[2021-08-31] MEDS: Morphine Sulfate Oral CONC 10 MG/0.5 ML ORAL.SYG SL PRN (04:26)
[2021-08-31] MEDS ORDERED: Artificial Tears SOLN 15 ML BOTTLE BOTH EYES PRN (07:53)
[2021-08-31] MEDS: Dexmedetomidine HCl 400 MCG/100 ML MLS IVC SCH ×3 (08:15→21:06)
[2021-08-31] MEDS: FentaNYL (PF) 1,000 MCG/100 ML IV.SOLN IVC SCH ×2 (08:19→16:43)
[2021-08-31] MEDS: Norepinephrine 4 MG/254 ML IV.SOLN IVC SCH ×4 (08:53→21:02)
[2021-08-31] MEDS: Cisatracurium 200 MG in 0.9 % Sodium Chloride 180 ML IVC SCH ×3 (09:38→23:32)
[2021-08-31 10:00] LABS: ABG Base Excess 2 mEq/L (-2 to 3); ABG HCO3 30 mEq/L (21-27); ABG Oxygen Saturation 86 % (95-98); ABG PCO2 58 mmHg (35-45); ABG PH 7.32 pH Units (7.32-7.45); ABG PO2 57 mmHg (85-104); ABG TCO2 32 mEq/L (20-26); Blood Gas Modality ASSIST CONTROL; Blood Gas VT 400 cc
[2021-08-31] MEDS: Artificial Tears SOLN 15 ML BOTTLE BOTH EYES SCH ×5 (10:59→23:09)
[2021-08-31] MEDS: Insulin LISPRO 300 UNITS/3 ML VIAL SUBQ SCH ×3 (10:59→17:12)
[2021-08-31] MEDS: Valsartan 80 MG TABLET PO SCH (11:00)
[2021-08-31] MEDS: Fluticasone Propionate Nasal 50 MCG/SPRAY BOTTLE NS SCH (11:00)
[2021-08-31] MEDS: Cyanocobalamin (B-12) 1,000 MCG TABLET PO SCH (11:05)
[2021-08-31] MEDS: Aspirin 81 MG TAB.CHEW PO SCH (11:05)
[2021-08-31] MEDS: Nystatin SUSP 5 ML UD.LIQ PO SCH ×5 (11:05→19:56)
[2021-08-31] MEDS: Loratadine 10 MG TABLET PO SCH (11:05)
[2021-08-31] MEDS: Pantoprazole 40 MG VIAL IVP SCH (11:05)
[2021-08-31] MEDS: Chlorhexidine Rinse 15 ML MOUTHWASH MM SCH ×2 (11:06→19:52)
[2021-08-31] MEDS: Acetaminophen 325 MG TABLET PO PRN (11:06)
[2021-08-31] MEDS: Insulin DETEMIR 100 UNIT/ML X5UNITS SUBQ SCH ×2 (11:07→19:53)
[2021-08-31] MEDS: Nystatin POWDER 30 GM BOTTLE TP SCH ×2 (11:07→19:56)
[2021-08-31] MEDS: rOPINIRole 1 MG TABLET PO SCH ×2 (11:07→19:52)
[2021-08-31] MEDS: *HR* Enoxaparin 40 MG/0.4 ML SYRINGE SQ SCH ×2 (11:07→23:07)
[2021-08-31] MEDS ORDERED: 0.9 % Sodium Chloride 1,000 ML ONE (11:17)
[2021-08-31] MEDS ORDERED: *HR* Etomidate 20 MG/10 ML AMPUL IVP ONE (13:33)
[2021-08-31] MEDS ORDERED: *HR* Midazolam HCl 5 MG/5 ML VIAL IVP ONE (13:33)
[2021-08-31] MEDS ORDERED: *HR* Midazolam HCl 2 MG/2 ML VIAL IVP ONE (13:33)
[2021-08-31] MEDS ORDERED: *HR* LORazepam 2 MG/ML VIAL IVP ONE (13:33)
[2021-08-31] MEDS ORDERED: *HR* Propofol 200 MG/20 ML VIAL IVP ONE (13:33)
[2021-08-31 14:46] LABS: ABG Base Excess 0 mEq/L (-2 to 3); ABG HCO3 27 mEq/L (21-27); ABG Oxygen Saturation 92 % (95-98); ABG PCO2 53 mmHg (35-45); ABG PH 7.32 pH Units (7.32-7.45); ABG PO2 72 mmHg (85-104); ABG TCO2 29 mEq/L (20-26); Blood Gas Modality ASSIST CONTROL; Blood Gas VT 400 cc
[2021-08-31 15:09] LABS: Basophils # 0.1 K/mcL (0.0-0.2); Basophils % 0.2 %; Eosinophils # 0.3 K/mcL (0.0-0.6); Eosinophils % 1.1 %; Hematocrit 46.8 % (35.3-44.9); Immature Granulocytes % 1.7 % (0-4); Lymphocytes % 4.1 %; Mean Corpuscular HGB Conc 32.1 g/dL (31.6-35.5); Mean Corpuscular Hemoglobin 29.8 pg (28.0-33.3); Mean Platelet Volume 10.6 fL (9.4-12.4); Monocytes # 0.7 K/mcL (0.0-1.3); Monocytes % 2.9 %; Platelet Count 222 K/mcL (140-400); Red Blood Count 5.03 M/mcL (3.82-4.97); Red Cell Distribution Width 14.9 % (11.5-14.5); White Blood Count 23.3 K/mcL (4.3-11.1)
[2021-08-31 15:11] LABS: VBG Ionized Calcium 1.04 mmol/L (1.15-1.35)
[2021-08-31 15:13] LABS: Bilirubin,Urine Negative (Negative); Blood,Urine Negative (Negative); Clarity,Urine Clear (Clear); Color,Urine Yellow (Yellow); Glucose,Urine (UA) Normal (Normal); Ketones,Urine Negative (Negative); Leukocyte Esterase,Urine Negative (Negative); Mucus,Urine Few per lpf (None-Few); Nitrite,Urine Negative (Negative); Protein,Urine 50 mg/dL (Neg-Trace); RBC,Urine 0-3 per hpf (0-3); Specific Gravity,Urine 1.029 (1.010-1.025); Urobilinogen,Urine Normal (Normal)
[2021-08-31 15:27] LABS: Albumin 3.2 g/dL (3.5-5.7); Albumin/Globulin Ratio 0.9 (1.1-2.2); Bilirubin,Total 0.9 mg/dL (0.3-1.0); Calcium 8.9 mg/dL (8.6-10.3); Globulin 3.6 g/dL (2.4-3.5); Magnesium 1.9 mg/dL (1.6-2.6); Phosphorous 5.7 mg/dL (2.7-4.5); Potassium 4.7 mEq/L (3.5-5.1); Total Protein 6.8 g/dL (6.4-8.9)
[2021-08-31] MEDS: Cefepime HCl 2,000 MG in 0.9 % Sodium Chloride 10 ML IVP SCH (19:50)
[2021-09-01] MEDS: Artificial Tears SOLN 15 ML BOTTLE BOTH EYES SCH ×6 (00:36→23:19)
[2021-09-01] MEDS: Insulin LISPRO 300 UNITS/3 ML VIAL SUBQ SCH ×6 (00:37→23:20)
[2021-09-01] MEDS: FentaNYL (PF) 1,000 MCG/100 ML IV.SOLN IVC SCH ×4 (02:35→23:41)
[2021-09-01 03:30] LABS: Basophils % 0.1 %; Eosinophils # 0.5 K/mcL (0.0-0.6); Eosinophils % 2.9 %; Hematocrit 38.5 % (35.3-44.9); Hemoglobin 13.4 g/dL (11.5-15.4); Immature Granulocytes % 0.9 % (0-4); Lymphocytes # 3.2 K/mcL (0.6-4.6); Lymphocytes % 18.4 %; Mean Corpuscular HGB Conc 34.8 g/dL (31.6-35.5); Mean Corpuscular Hemoglobin 30.7 pg (28.0-33.3); Mean Corpuscular Volume 88.1 fL (83.0-100.0); Monocytes # 0.6 K/mcL (0.0-1.3); Monocytes % 3.6 %; Platelet Count 187 K/mcL (140-400); Red Blood Count 4.37 M/mcL (3.82-4.97); Red Cell Distribution Width 14.7 % (11.5-14.5); Segmented Neutrophils % 74.1 %; White Blood Count 17.5 K/mcL (4.3-11.1)
[2021-09-01 03:32] LABS: VBG Ionized Calcium 1.13 mmol/L (1.15-1.35)
[2021-09-01 03:50] LABS: Alanine Aminotransferase 15 Units/L (7-52); Albumin 2.9 g/dL (3.5-5.7); Alkaline Phosphatase 71 Units/L (34-104); Aspartate Amino Transferase 18 Units/L (13-39); BUN/Creatinine Ratio 28 (6-26); Bilirubin,Total 0.9 mg/dL (0.3-1.0); Blood Urea Nitrogen 30 mg/dL (8-23); Calcium 8.7 mg/dL (8.6-10.3); Carbon Dioxide 27 mEq/L (23-29); Chloride 98 mEq/L (98-107); Glucose 200 mg/dL (70-105); Magnesium 1.8 mg/dL (1.6-2.6); Osmolality,Calculated 288 (280-300); Potassium 3.9 mEq/L (3.5-5.1); Sodium 133 mEq/L (136-145); Total Protein 5.9 g/dL (6.4-8.9); eGFR For African Americans > 60 (> 60); eGFR For Non-African Americans 51 (> 60)
[2021-09-01 04:04] LABS: ABG Base Excess 7 mEq/L (-2 to 3); ABG HCO3 29 mEq/L (21-27); ABG Oxygen Saturation 95 % (95-98); ABG PCO2 34 mmHg (35-45); ABG PH 7.54 pH Units (7.32-7.45); ABG PO2 68 mmHg (85-104); ABG TCO2 30 mEq/L (20-26); Blood Gas VT 400 cc
[2021-09-01] MEDS: Dexmedetomidine HCl 400 MCG/100 ML MLS IVC SCH ×2 (04:47→15:52)
[2021-09-01] MEDS: Cisatracurium 200 MG in 0.9 % Sodium Chloride 180 ML IVC SCH ×3 (06:38→20:16)
[2021-09-01] MEDS: Cefepime HCl 2,000 MG in 0.9 % Sodium Chloride 10 ML IVP SCH ×3 (07:46→23:21)
[2021-09-01] MEDS: Pantoprazole 40 MG VIAL IVP SCH (07:46)
[2021-09-01] MEDS: Chlorhexidine Rinse 15 ML MOUTHWASH MM SCH ×2 (07:46→20:04)
[2021-09-01] MEDS: *HR* Enoxaparin 40 MG/0.4 ML SYRINGE SQ SCH ×2 (07:46→20:05)
[2021-09-01] MEDS: Aspirin 81 MG TAB.CHEW PO SCH (07:49)
[2021-09-01] MEDS: Cyanocobalamin (B-12) 1,000 MCG TABLET PO SCH (07:49)
[2021-09-01] MEDS: Nystatin SUSP 5 ML UD.LIQ PO SCH ×4 (07:49→20:05)
[2021-09-01] MEDS: rOPINIRole 1 MG TABLET PO SCH (07:49)
[2021-09-01] MEDS: Nystatin POWDER 30 GM BOTTLE TP SCH ×2 (07:53→20:06)
[2021-09-01] MEDS: Insulin DETEMIR 100 UNIT/ML X5UNITS SUBQ SCH ×2 (07:55→20:05)
[2021-09-01] MEDS: Loratadine 10 MG TABLET PO SCH (08:02)
[2021-09-01] MEDS: Norepinephrine 4 MG/254 ML IV.SOLN IVC SCH ×2 (08:19→20:13)
[2021-09-01] MEDS: Fluticasone Propionate Nasal 50 MCG/SPRAY BOTTLE NS SCH (09:14)
[2021-09-01] MEDS ORDERED: Vancomycin 1,750 MG/517.5 ML IV.SOLN IVPB ONE (11:00)
[2021-09-02] MEDS: Cisatracurium 200 MG in 0.9 % Sodium Chloride 180 ML IVC SCH ×5 (01:40→22:57)
[2021-09-02] MEDS: Vasopressin 40 UNIT in D5% in Water 100 ML IVC SCH ×2 (03:06→14:41)
[2021-09-02] MEDS: Artificial Tears SOLN 15 ML BOTTLE BOTH EYES SCH ×6 (03:43→23:43)
[2021-09-02] MEDS: Insulin LISPRO 300 UNITS/3 ML VIAL SUBQ SCH ×6 (03:44→23:44)
[2021-09-02] MEDS: FentaNYL (PF) 1,000 MCG/100 ML IV.SOLN IVC SCH ×5 (03:52→23:08)
[2021-09-02 03:53] LABS: Basophils % 0.2 %; Eosinophils # 0.2 K/mcL (0.0-0.6); Eosinophils % 1.1 %; Hematocrit 38.6 % (35.3-44.9); Hemoglobin 12.5 g/dL (11.5-15.4); Immature Granulocytes % 0.9 % (0-4); Lymphocytes # 1.6 K/mcL (0.6-4.6); Mean Corpuscular HGB Conc 32.4 g/dL (31.6-35.5); Mean Corpuscular Hemoglobin 29.8 pg (28.0-33.3); Mean Corpuscular Volume 91.9 fL (83.0-100.0); Mean Platelet Volume 9.7 fL (9.4-12.4); Monocytes % 5.3 %; Neutrophils # 15.1 K/mcL (1.6-8.9); Platelet Count 183 K/mcL (140-400); Red Cell Distribution Width 14.6 % (11.5-14.5); Segmented Neutrophils % 83.5 %; White Blood Count 18.1 K/mcL (4.3-11.1)
[2021-09-02 03:56] LABS: ABG Base Excess 1 mEq/L (-2 to 3); ABG HCO3 28 mEq/L (21-27); ABG Oxygen Saturation 96 % (95-98); ABG PCO2 51 mmHg (35-45); ABG PH 7.35 pH Units (7.32-7.45); ABG PO2 87 mmHg (85-104); ABG TCO2 30 mEq/L (20-26); Blood Gas Modality ASSIST CONTROL; Blood Gas VT 330 cc
[2021-09-02 04:13] LABS: Alanine Aminotransferase 13 Units/L (7-52); Albumin 2.8 g/dL (3.5-5.7); Albumin/Globulin Ratio 0.9 (1.1-2.2); Alkaline Phosphatase 63 Units/L (34-104); Aspartate Amino Transferase 13 Units/L (13-39); BUN/Creatinine Ratio 28 (6-26); Bilirubin,Total 0.5 mg/dL (0.3-1.0); Blood Urea Nitrogen 24 mg/dL (8-23); Calcium 8.5 mg/dL (8.6-10.3); Carbon Dioxide 30 mEq/L (23-29); Chloride 102 mEq/L (98-107); Globulin 3.1 g/dL (2.4-3.5); Glucose 160 mg/dL (70-105); Magnesium 1.9 mg/dL (1.6-2.6); Osmolality,Calculated 287 (280-300); Phosphorous 3.3 mg/dL (2.7-4.5); Potassium 4.5 mEq/L (3.5-5.1); Sodium 135 mEq/L (136-145); Total Protein 5.9 g/dL (6.4-8.9); eGFR For African Americans > 60 (> 60); eGFR For Non-African Americans > 60 (> 60)
[2021-09-02] MEDS: Pantoprazole 40 MG VIAL IVP SCH (08:29)
[2021-09-02] MEDS: Chlorhexidine Rinse 15 ML MOUTHWASH MM SCH ×2 (08:29→20:09)
[2021-09-02] MEDS: Cefepime HCl 2,000 MG in 0.9 % Sodium Chloride 10 ML IVP SCH ×3 (08:30→23:43)
[2021-09-02] MEDS: Nystatin SUSP 5 ML UD.LIQ PO SCH ×3 (08:31→15:49)
[2021-09-02] MEDS: *HR* Enoxaparin 40 MG/0.4 ML SYRINGE SQ SCH ×2 (08:31→20:10)
[2021-09-02] MEDS: Aspirin 81 MG TAB.CHEW PO SCH (08:31)
[2021-09-02] MEDS: Cyanocobalamin (B-12) 1,000 MCG TABLET PO SCH (08:31)
[2021-09-02] MEDS: Insulin DETEMIR 100 UNIT/ML X5UNITS SUBQ SCH ×2 (08:32→20:11)
[2021-09-02] MEDS: Norepinephrine 4 MG/254 ML IV.SOLN IVC SCH ×2 (08:34→23:48)
[2021-09-02] MEDS: Nystatin POWDER 30 GM BOTTLE TP SCH ×2 (08:35→20:07)
[2021-09-02 10:22] LABS: ABG Base Excess 0 mEq/L (-2 to 3); ABG HCO3 29 mEq/L (21-27); ABG Oxygen Saturation 94 % (95-98); ABG PCO2 65 mmHg (35-45); ABG PH 7.26 pH Units (7.32-7.45); ABG PO2 84 mmHg (85-104); ABG TCO2 31 mEq/L (20-26); Blood Gas VT 300 cc
[2021-09-02] MEDS ORDERED: Vancomycin 1,750 MG/517.5 ML IV.SOLN IVPB SCH (11:00)
[2021-09-02 16:33] LABS: ABG Base Excess -1 mEq/L (-2 to 3); ABG HCO3 28 mEq/L (21-27); ABG Oxygen Saturation 92 % (95-98); ABG PCO2 69 mmHg (35-45); ABG PH 7.22 pH Units (7.32-7.45); ABG PO2 80 mmHg (85-104); ABG TCO2 30 mEq/L (20-26); Blood Gas VT 300 cc
[2021-09-03] MEDS: Artificial Tears SOLN 15 ML BOTTLE BOTH EYES SCH ×6 (03:28→23:33)
[2021-09-03] MEDS: Insulin LISPRO 300 UNITS/3 ML VIAL SUBQ SCH ×6 (03:34→23:33)
[2021-09-03] MEDS: Cisatracurium 200 MG in 0.9 % Sodium Chloride 180 ML IVC SCH ×2 (03:35→07:35)
[2021-09-03 03:52] LABS: Basophils % 0.2 %; Eosinophils # 0.4 K/mcL (0.0-0.6); Eosinophils % 2.5 %; Hemoglobin 12.3 g/dL (11.5-15.4); Lymphocytes # 1.8 K/mcL (0.6-4.6); Lymphocytes % 10.3 %; Mean Corpuscular HGB Conc 32.4 g/dL (31.6-35.5); Mean Corpuscular Hemoglobin 30.8 pg (28.0-33.3); Mean Platelet Volume 10.1 fL (9.4-12.4); Monocytes # 1.1 K/mcL (0.0-1.3); Monocytes % 5.9 %; Neutrophils # 14.2 K/mcL (1.6-8.9); Platelet Count 200 K/mcL (140-400); Red Cell Distribution Width 14.7 % (11.5-14.5); Segmented Neutrophils % 80.1 %; White Blood Count 17.7 K/mcL (4.3-11.1)
[2021-09-03 03:52] LABS: VBG Ionized Calcium 1.22 mmol/L (1.15-1.35)
[2021-09-03 04:08] LABS: ABG Base Excess 0 mEq/L (-2 to 3); ABG HCO3 28 mEq/L (21-27); ABG Oxygen Saturation 94 % (95-98); ABG PCO2 62 mmHg (35-45); ABG PH 7.27 pH Units (7.32-7.45); ABG PO2 83 mmHg (85-104); ABG TCO2 30 mEq/L (20-26); Blood Gas Modality AF; Blood Gas VT 380 cc
[2021-09-03 04:09] LABS: Alanine Aminotransferase 13 Units/L (7-52); Albumin 2.7 g/dL (3.5-5.7); Albumin/Globulin Ratio 0.9 (1.1-2.2); Alkaline Phosphatase 69 Units/L (34-104); Aspartate Amino Transferase 12 Units/L (13-39); BUN/Creatinine Ratio 35 (6-26); Bilirubin,Total 0.4 mg/dL (0.3-1.0); Blood Urea Nitrogen 28 mg/dL (8-23); Calcium 8.4 mg/dL (8.6-10.3); Carbon Dioxide 27 mEq/L (23-29); Chloride 105 mEq/L (98-107); Glucose 154 mg/dL (70-105); Magnesium 1.9 mg/dL (1.6-2.6); Osmolality,Calculated 295 (280-300); Phosphorous 3.4 mg/dL (2.7-4.5); Potassium 4.6 mEq/L (3.5-5.1); Sodium 138 mEq/L (136-145); Total Protein 5.7 g/dL (6.4-8.9); eGFR For African Americans > 60 (> 60); eGFR For Non-African Americans > 60 (> 60)
[2021-09-03] MEDS: FentaNYL (PF) 1,000 MCG/100 ML IV.SOLN IVC SCH ×5 (04:10→22:39)
[2021-09-03] MEDS: Vasopressin 40 UNIT in D5% in Water 100 ML IVC SCH ×2 (06:50→12:18)
[2021-09-03] MEDS: Norepinephrine 4 MG/254 ML IV.SOLN IVC SCH ×2 (07:00→15:08)
[2021-09-03] MEDS: Pantoprazole 40 MG VIAL IVP SCH (07:00)
[2021-09-03] MEDS: Chlorhexidine Rinse 15 ML MOUTHWASH MM SCH ×2 (07:01→19:39)
[2021-09-03] MEDS: Cefepime HCl 2,000 MG in 0.9 % Sodium Chloride 10 ML IVP SCH (07:01)
[2021-09-03] MEDS: Cyanocobalamin (B-12) 1,000 MCG TABLET PO SCH (07:02)
[2021-09-03] MEDS: *HR* Enoxaparin 40 MG/0.4 ML SYRINGE SQ SCH ×2 (07:02→19:40)
[2021-09-03] MEDS: Aspirin 81 MG TAB.CHEW PO SCH (07:03)
[2021-09-03] MEDS: Nystatin POWDER 30 GM BOTTLE TP SCH ×2 (07:03→19:41)
[2021-09-03] MEDS: Insulin DETEMIR 100 UNIT/ML X5UNITS SUBQ SCH ×2 (07:03→20:25)
[2021-09-03] MEDS ORDERED: cefTRIAXone 1,000 MG in 0.9 % Sodium Chloride 10 ML IVPB SCH (09:00)
[2021-09-03 10:18] LABS: ABG Base Excess -1 mEq/L (-2 to 3); ABG HCO3 27 mEq/L (21-27); ABG Oxygen Saturation 88 % (95-98); ABG PCO2 63 mmHg (35-45); ABG PH 7.25 pH Units (7.32-7.45); ABG PO2 66 mmHg (85-104); ABG TCO2 29 mEq/L (20-26); Blood Gas VT 350 cc
[2021-09-03] MEDS: Ergocalciferol (VIT D2) 50,000 UNIT (1.25MG) CAP PO SCH (11:05)
[2021-09-03] MEDS: Dexmedetomidine HCl 400 MCG/100 ML MLS IVC SCH ×3 (11:18→19:58)
[2021-09-03] MEDS: cefTRIAXone 1,000 MG in 0.9 % Sodium Chloride 10 ML IVPB SCH (19:40)
[2021-09-04] MEDS: Norepinephrine 4 MG/254 ML IV.SOLN IVC SCH ×5 (02:13→21:53)
[2021-09-04] MEDS: Dexmedetomidine HCl 400 MCG/100 ML MLS IVC SCH ×4 (02:14→17:59)
[2021-09-04] MEDS: Insulin LISPRO 300 UNITS/3 ML VIAL SUBQ SCH ×5 (03:34→20:02)
[2021-09-04] MEDS: Artificial Tears SOLN 15 ML BOTTLE BOTH EYES SCH ×5 (03:34→20:01)
[2021-09-04 03:43] LABS: Hematocrit 41.7 % (35.3-44.9); Hemoglobin 12.8 g/dL (11.5-15.4); Mean Corpuscular HGB Conc 30.7 g/dL (31.6-35.5); Mean Corpuscular Hemoglobin 29.4 pg (28.0-33.3); Mean Corpuscular Volume 95.6 fL (83.0-100.0); Mean Platelet Volume 10.1 fL (9.4-12.4); Platelet Count 193 K/mcL (140-400); Red Blood Count 4.36 M/mcL (3.82-4.97); Red Cell Distribution Width 14.9 % (11.5-14.5)
[2021-09-04 04:01] LABS: VBG Ionized Calcium 1.28 mmol/L (1.15-1.35)
[2021-09-04 04:06] LABS: Alanine Aminotransferase 12 Units/L (7-52); Albumin 2.8 g/dL (3.5-5.7); Albumin/Globulin Ratio 0.9 (1.1-2.2); Alkaline Phosphatase 96 Units/L (34-104); Aspartate Amino Transferase 17 Units/L (13-39); BUN/Creatinine Ratio 38 (6-26); Bilirubin,Total 0.4 mg/dL (0.3-1.0); Blood Urea Nitrogen 28 mg/dL (8-23); Calcium 8.6 mg/dL (8.6-10.3); Carbon Dioxide 27 mEq/L (23-29); Chloride 101 mEq/L (98-107); Globulin 3.2 g/dL (2.4-3.5); Glucose 171 mg/dL (70-105); Magnesium 1.8 mg/dL (1.6-2.6); Osmolality,Calculated 294 (280-300); Phosphorous 2.9 mg/dL (2.7-4.5); Potassium 4.6 mEq/L (3.5-5.1); Sodium 137 mEq/L (136-145); eGFR For African Americans > 60 (> 60); eGFR For Non-African Americans > 60 (> 60)
[2021-09-04] MEDS: FentaNYL (PF) 1,000 MCG/100 ML IV.SOLN IVC SCH ×5 (04:28→22:58)
[2021-09-04 04:37] LABS: ABG Base Excess 0 mEq/L (-2 to 3); ABG HCO3 28 mEq/L (21-27); ABG Oxygen Saturation 81 % (95-98); ABG PCO2 61 mmHg (35-45); ABG PH 7.27 pH Units (7.32-7.45); ABG PO2 53 mmHg (85-104); ABG TCO2 30 mEq/L (20-26); Blood Gas VT 350 cc
[2021-09-04] MEDS: Chlorhexidine Rinse 15 ML MOUTHWASH MM SCH ×2 (07:09→19:58)
[2021-09-04] MEDS: Pantoprazole 40 MG VIAL IVP SCH (07:09)
[2021-09-04] MEDS: Aspirin 81 MG TAB.CHEW PO SCH (07:09)
[2021-09-04] MEDS: Cyanocobalamin (B-12) 1,000 MCG TABLET PO SCH (07:09)
[2021-09-04] MEDS: *HR* Enoxaparin 40 MG/0.4 ML SYRINGE SQ SCH ×2 (07:10→19:59)
[2021-09-04] MEDS: Nystatin POWDER 30 GM BOTTLE TP SCH ×2 (07:11→20:00)
[2021-09-04] MEDS: Insulin DETEMIR 100 UNIT/ML X5UNITS SUBQ SCH ×2 (07:14→20:00)
[2021-09-04] MEDS: Cisatracurium 200 MG in 0.9 % Sodium Chloride 180 ML IVC SCH ×5 (07:48→23:36)
[2021-09-04] MEDS: Vasopressin 40 UNIT in D5% in Water 100 ML IVC SCH (08:47)
[2021-09-04 15:58] LABS: ABG Base Excess -5 mEq/L (-2 to 3); ABG HCO3 28 mEq/L (21-27); ABG Oxygen Saturation 57 % (95-98); ABG PCO2 96 mmHg (35-45); ABG PH 7.07 pH Units (7.32-7.45); ABG PO2 43 mmHg (85-104); ABG TCO2 31 mEq/L (20-26); Blood Gas VT 300 cc
[2021-09-04] MEDS: cefTRIAXone 1,000 MG in 0.9 % Sodium Chloride 10 ML IVPB SCH (19:59)
[2021-09-04 23:34] LABS: ABG Base Excess 1 mEq/L (-2 to 3); ABG HCO3 29 mEq/L (21-27); ABG Oxygen Saturation 92 % (95-98); ABG PCO2 58 mmHg (35-45); ABG PO2 72 mmHg (85-104); ABG TCO2 30 mEq/L (20-26); Blood Gas VT 400 cc
[2021-09-05] MEDS: Dexmedetomidine HCl 400 MCG/100 ML MLS IVC SCH ×2 (00:24→06:53)
[2021-09-05] MEDS: Insulin LISPRO 300 UNITS/3 ML VIAL SUBQ SCH ×3 (00:25→08:57)
[2021-09-05] MEDS: Artificial Tears SOLN 15 ML BOTTLE BOTH EYES SCH ×3 (00:25→08:57)
[2021-09-05] MEDS ORDERED: Cisatracurium 400 MG in 0.9 % Sodium Chloride 360 ML IVC SCH (02:45)
[2021-09-05 04:20] LABS: ABG Base Excess 0 mEq/L (-2 to 3); ABG HCO3 26 mEq/L (21-27); ABG Oxygen Saturation 89 % (95-98); ABG PCO2 45 mmHg (35-45); ABG PH 7.37 pH Units (7.32-7.45); ABG PO2 58 mmHg (85-104); ABG TCO2 27 mEq/L (20-26); Blood Gas VT 400 cc
[2021-09-05] MEDS: FentaNYL (PF) 1,000 MCG/100 ML IV.SOLN IVC SCH ×2 (04:38→10:04)
[2021-09-05] MEDS: Norepinephrine 4 MG/254 ML IV.SOLN IVC SCH (04:40)
[2021-09-05 05:17] LABS: VBG Ionized Calcium 1.19 mmol/L (1.15-1.35)
[2021-09-05 05:57] LABS: Basophils # 0.1 K/mcL (0.0-0.2); Basophils % 0.4 %; Eosinophils % 7.4 %; Hemoglobin 11.7 g/dL (11.5-15.4); Immature Granulocytes % 1.9 % (0-4); Lymphocytes # 2.4 K/mcL (0.6-4.6); Lymphocytes % 17.6 %; Mean Corpuscular HGB Conc 30.8 g/dL (31.6-35.5); Mean Corpuscular Hemoglobin 29.5 pg (28.0-33.3); Mean Corpuscular Volume 95.7 fL (83.0-100.0); Mean Platelet Volume 10.6 fL (9.4-12.4); Monocytes # 0.4 K/mcL (0.0-1.3); Monocytes % 2.5 %; Neutrophils # 9.7 K/mcL (1.6-8.9); Nucleated Red Blood Cells 0.1 /100 WBC (0); Platelet Count 165 K/mcL (140-400); Red Blood Count 3.97 M/mcL (3.82-4.97); Red Cell Distribution Width 14.6 % (11.5-14.5); Segmented Neutrophils % 70.2 %; White Blood Count 13.8 K/mcL (4.3-11.1)
[2021-09-05 06:08] LABS: Alanine Aminotransferase 8 Units/L (7-52); Albumin 2.6 g/dL (3.5-5.7); Albumin/Globulin Ratio 0.9 (1.1-2.2); Alkaline Phosphatase 92 Units/L (34-104); Aspartate Amino Transferase 15 Units/L (13-39); BUN/Creatinine Ratio 32 (6-26); Bilirubin,Total 0.4 mg/dL (0.3-1.0); Blood Urea Nitrogen 21 mg/dL (8-23); Calcium 8.2 mg/dL (8.6-10.3); Carbon Dioxide 27 mEq/L (23-29); Chloride 102 mEq/L (98-107); Globulin 2.8 g/dL (2.4-3.5); Glucose 99 mg/dL (70-105); Magnesium 1.8 mg/dL (1.6-2.6); Osmolality,Calculated 281 (280-300); Phosphorous 1.9 mg/dL (2.7-4.5); Potassium 4.2 mEq/L (3.5-5.1); Sodium 134 mEq/L (136-145); Total Protein 5.4 g/dL (6.4-8.9); eGFR For African Americans > 60 (> 60); eGFR For Non-African Americans > 60 (> 60)
[2021-09-05 06:42] LABS: Platelet Estimate Normal (Normal); Reactive Lymphocytes Present (Not Present)
[2021-09-05 08:09] VITALS: TEMP 99.1
[2021-09-05] MEDS: Chlorhexidine Rinse 15 ML MOUTHWASH MM SCH (09:09)
[2021-09-05] MEDS: Aspirin 81 MG TAB.CHEW PO SCH (09:09)
[2021-09-05] MEDS: *HR* Enoxaparin 40 MG/0.4 ML SYRINGE SQ SCH (09:09)
[2021-09-05] MEDS: Insulin DETEMIR 100 UNIT/ML X5UNITS SUBQ SCH (09:09)
[2021-09-05] MEDS: Nystatin POWDER 30 GM BOTTLE TP SCH (09:09)
[2021-09-05] MEDS: Vasopressin 40 UNIT in D5% in Water 100 ML IVC SCH (09:10)
[2021-09-05] MEDS: Cyanocobalamin (B-12) 1,000 MCG TABLET PO SCH (09:10)
[2021-09-05] MEDS: Pantoprazole 40 MG VIAL IVP SCH (09:10)
[2021-09-05] MEDS ORDERED: *HR* FentaNYL (PF) 100 MCG/2 ML VIAL IVP PRN ×2 (11:38→13:18)
[2021-09-05 11:54] VITALS: O2SAT 89
[2021-09-05] MEDS: *HR* LORazepam 2 MG/ML VIAL IVP PRN ×2 (12:01→13:05)
[2021-09-05 12:05] VITALS: BP 101/45; PULSE 66
[2021-09-05] MEDS ORDERED: *HR* LORazepam 2 MG/ML VIAL IVP PRN (13:18)
== END 2021-09-05 13:16 | disposition expired | DRG 207 ==
LOC: 2NNU → SUATTDRO 02:41 → OBSVTOIN 02:41 → ICNU 08-14 14:28 → 2ANU 08-19 13:15 → 2NENU 08-26 15:05 → ICNU 08-31 10:33
PROVIDERS: ADMIT Internal Medicine; ATTEND Student in an Organized Health Care Education/Training Program